=== PATIENT | male | born 1980 | race Caucasian/White ===

== ENCOUNTER → 2016-10-31 | Outpatient (CLI) | payer BC | LOC: LAB 15:34 | DX: N48.89 Other specified disorders of penis (principal); R59.0 Localized enlarged lymph nodes | CPT/HCPCS: 87086 ==

== ENCOUNTER → 2016-11-01 | Outpatient (CLI) | payer BC ==
[2016-11-01 16:25] LABS: HEMOGLOBIN 14.7 gm/dl (14.0-17.5); RED BLOOD COUNT 4.73 M/UL (4.20-5.50); WHITE BLOOD COUNT 8.5 K/UL (4.5-11.0)
[2016-11-01 16:42] LABS: BUN/CREATININE RATIO 10 (0-10)
== END ==
LOC: LAB 15:58
PROVIDERS: Nurse Practitioner Family
DX: R59.0 Localized enlarged lymph nodes (principal); R50.9 Fever, unspecified
CPT/HCPCS: 36415; 80048; 85025; 86140